=== PATIENT | female | born 2000 | race Caucasian/White ===

== ENCOUNTER 2022-12-27 18:27 | Emergency (ER) | payer MEDICAID, SELFPAY ==
[2022-12-27] MEDS ORDERED: Boostrix 0.5 ML (Tdap) VIAL (>/=7 yrs of age) ONE (19:06)
[2022-12-27] MEDS ORDERED: Amoxicillin/Potassium Clav 875 MG TAB ONE (19:42)
== END 2022-12-27 19:47 | disposition home or self-care (01) ==
LOC: ERS 18:27
DX: S61.051A Open bite of right thumb without damage to nail, initial encounter (principal); S01.452A Open bite of left cheek and temporomandibular area, initial encounter; S01.551A Open bite of lip, initial encounter; W55.01XA Bitten by cat, initial encounter; Z23 Encounter for immunization
CPT/HCPCS: 90471; 90715